=== PATIENT | female | born 1955 | race African-American/Black ===

== ENCOUNTER → 2017-03-05 | Outpatient (CLI) | payer OTHER ==
[2014-09-11 10:48] VITALS: BP 172/90
--- NOTE | 2017-03-05 11:33 | RAD ---
DATE: 03/05/2017 EXAM: DIGITAL SCREEN BILAT W/CAD HISTORY: Routine screening COMPARISON: 12/28/2014, 12/22/2014 This study was interpreted with the benefit of Computerized Aided Detection (CAD). FINDINGS: There are scattered fibroglandular densities in the breasts. No new or enlarging breast densities are seen. Benign type calcifications are present. No suspicious microcalcifications have developed. Benign-appearing lymph node type densities are noted in both axillary regions. IMPRESSION: There is no mammographic evidence of malignancy in either breast. BI-RADS CATEGORY: 2 BENIGN FINDING(S) RECOMMENDED FOLLOW-UP: 12M 12 MONTH FOLLOW-UP PQRS compliance statement: Patient information was entered into a reminder system with a target due date for the next mammogram. Mammography is a sensitive method for finding small breast cancers, but it does not detect them all and is not a substitute for careful clinical examination. A negative mammogram does not negate a clinically suspicious finding and should not result in delay in biopsying a clinically suspicious abnormality. "Our facility is accredited by the [employer] Mammography [employer]."
== END | disposition home or self-care (01) ==
LOC: MAMMO 10:14
PROVIDERS: ATTEND Family Medicine
DX: Z12.31 Encounter for screening mammogram for malignant neoplasm of breast (principal)
CPT/HCPCS: G0202; 77067

== ENCOUNTER → 2017-12-07 | Outpatient (CLI) | payer OTHER | END | disposition home or self-care (01) | LOC: US 14:37 | DX: N95.0 Postmenopausal bleeding (principal); R93.8 Abnormal findings on diagnostic imaging of other specified body structures | CPT/HCPCS: 76856 ==

== ENCOUNTER 2018-01-21 10:11 | Observation (INO) | payer OTHER ==
[~2018-01-21 10:11] MED LIST: LIDOCAINE 1% PF 2 ML VIAL. ID; LIDOCAINE 1%/EPI 1:100,000 20 ML VIAL.; METHYLENE BLUE 1% 10 ML VIAL.; MORPHINE SULFATE 2 MG/ML DISP.SYRIN. IV; ONDANSETRON PF 4 MG/2 ML VIAL. IV; PROCHLORPERAZINE 10 MG/2 ML VIAL. IV; SURGICEL HEMOSTAT 4X8 EACH.; ceFAZolin 2GM PREMIX 2 GM/50 ML BAG IV; fentaNYL PF VIAL 100 MCG/2 ML VIAL IV
[2018-01-21] MEDS: IV RINGERS,LACTATED 1000ML 1,000 ML IV ×4 (10:53→15:53)
[2018-01-21 10:59] LABS: ADD MAN DIFF? NO
[2018-01-21 11:03] LABS: BASO % 1 % (0-3); EOS % 0 % (0-3); HEMATOCRIT 46.3 % (36.0-47.0); HEMOGLOBIN 15.3 g/dL (12.0-15.5); LYMPH # 1.5 x10^3/uL (1.0-4.8); LYMPH % 32 % (24-48); MEAN CORPUSCULAR HEMOGLOBIN 30 pg (25-35); MEAN CORPUSCULAR HGB CONC 33 g/dL (31-37); MEAN CORPUSCULAR VOLUME 90 fL (79-100); MONO # 0.4 x10^3/uL (0.0-1.1); MONO % 8 % (0-9); NEUT # 2.7 x10^3uL (1.8-7.7); NEUT % 59 % (31-73); PLATELET COUNT 244 x10^3/uL (140-400); RED BLOOD COUNT 5.17 x10^6/uL (3.50-5.40); RED CELL DISTRIBUTION WIDTH 14.2 % (11.5-14.5); WHITE BLOOD COUNT 4.6 x10^3/uL (4.0-11.0)
[2018-01-21] MEDS ORDERED: MIDAZOLAM HCL/PF 2 MG/2 ML VIAL. ×2 (11:06)
[2018-01-21] MEDS ORDERED: GLYCOPYRROLATE 1 MG/5 ML VIAL. ×2 (11:06)
[2018-01-21] MEDS ORDERED: ROCURONIUM 50 MG/5 ML VIAL. ×2 (11:06)
[2018-01-21] MEDS ORDERED: NEOSTIGMINE 10 MG/10 ML VIAL. ×2 (11:06)
[2018-01-21] MEDS ORDERED: fentaNYL PF VIAL 100 MCG/2 ML VIAL ×6 (11:06→13:27)
[2018-01-21] MEDS ORDERED: DEXAMETHASONE SOD PHOS 20 MG/5 ML VIAL. ×2 (11:07)
[2018-01-21] MEDS ORDERED: PROPOFOL 20 ML IV ×2 (11:07)
[2018-01-21] MEDS ORDERED: ONDANSETRON PF 4 MG/2 ML VIAL. ×2 (11:08)
[2018-01-21] MEDS ORDERED: LIDOCAINE 2% PF Vial for OR 5 ML VIAL. ×2 (11:08)
[2018-01-21] MEDS ORDERED: PHENYLEPHRINE in 0.9% NACL PF 1 MG/10 ML SYRINGE. IV (12:47)
[2018-01-21] MEDS: BUPIVACAINE-EPI 0.25%-1:200000 50 ML VIAL. IJ ×2 (12:55)
[2018-01-21] MEDS ORDERED: ROCURONIUM 100 MG/10 ML VIAL. ×2 (13:15)
[2018-01-21] MEDS: ESTROGENS, CONJ VAGINAL CREAM 30GM TUBE. ×2 (14:17)
[2018-01-21] MEDS ORDERED: KETOROLAC 30 MG/ML INJ FOR OR. INJ ×2 (14:19)
[2018-01-21] MEDS ORDERED: ONDANSETRON PF 4 MG/2 ML VIAL. IV ×2 (14:45)
[2018-01-21] MEDS ORDERED: 0.9 % SODIUM CHLORIDE 10 ML DISP.SYRIN. IV ×2 (14:45)
[2018-01-21] MEDS ORDERED: diphenhydrAMINE 50 MG/ML VIAL IV ×2 (14:45)
[2018-01-21] MEDS ORDERED: SIMETHICONE 80 MG TAB.CHEW PO ×2 (14:45)
[2018-01-21] MEDS ORDERED: PROCHLORPERAZINE 10 MG/2 ML VIAL. IV ×2 (14:45)
[2018-01-21] MEDS ORDERED: DEXTROSE 50% 25 GM / 50ML DISP.SYRIN. IV ×2 (14:45)
[2018-01-21] MEDS ORDERED: KETOROLAC 30 MG/ML INJ. IV ×2 (14:45)
[2018-01-21] MEDS ORDERED: diphenhydrAMINE HCL 25 MG CAPSULE PO ×2 (14:45)
[2018-01-21] MEDS ORDERED: CALCIUM CARBONATE 500 MG TAB.CHEW PO ×2 (14:45)
[2018-01-21] MEDS: GABAPENTIN 300 MG CAPSULE. PO ×4 (15:00→22:01)
[2018-01-21] MEDS: fentaNYL PF VIAL 100 MCG/2 ML VIAL IV ×4 (15:15→15:33)
[2018-01-21] MEDS: ZOLPIDEM 5 MG TABLET. PO ×2 (22:01)
[2018-01-21] MEDS: oxyCODONE/APAP 5/325 1 TAB TABLET PO ×2 (22:04)
[2018-01-22 05:32] LABS: BASO % 0 % (0-3); EOS % 0 % (0-3); HEMATOCRIT 40.5 % (36.0-47.0); HEMOGLOBIN 13.2 g/dL (12.0-15.5); LYMPH # 0.8 x10^3/uL (1.0-4.8); LYMPH % 5 % (24-48); MEAN CORPUSCULAR HEMOGLOBIN 29 pg (25-35); MEAN CORPUSCULAR HGB CONC 33 g/dL (31-37); MEAN CORPUSCULAR VOLUME 90 fL (79-100); MONO # 0.4 x10^3/uL (0.0-1.1); MONO % 3 % (0-9); NEUT # 14.8 x10^3uL (1.8-7.7); NEUT % 92 % (31-73); PLATELET COUNT 238 x10^3/uL (140-400); RED BLOOD COUNT 4.49 x10^6/uL (3.50-5.40); RED CELL DISTRIBUTION WIDTH 13.8 % (11.5-14.5)
[2018-01-22 05:45] LABS: ADD MAN DIFF? YES
[2018-01-22 07:46] LABS: % BANDS 8 % (0-9); % LYMPHS 3 % (24-48); % MONOS 3 % (0-10); % SEGS 86 % (35-66)
[2018-01-22 07:51] LABS: PLT ESTIMATE ADEQUATE (ADEQUATE)
[2018-01-22] MEDS: GABAPENTIN 300 MG CAPSULE. PO ×2 (08:32)
[2018-01-22] MEDS: oxyCODONE/APAP 5/325 1 TAB TABLET PO ×2 (08:47)
== END 2018-01-22 10:18 | disposition home or self-care (01) ==
LOC: SURG 10:11 → 3 NORTH 15:40
DX: D25.9 Leiomyoma of uterus, unspecified (principal); N95.0 Postmenopausal bleeding; N84.0 Polyp of corpus uteri; N80.0 Endometriosis of uterus; N83.202 Unspecified ovarian cyst, left side; N83.201 Unspecified ovarian cyst, right side
CPT/HCPCS: 36415; 85007; 85025; 86850; 86900; 86901; 88307; A4215; G0378; G0379; J0690; J1100; J1885; J2250; J2370; J2405; J2704; J2710; J3010; J3490; J7030; J7120; Q9968

== ENCOUNTER → 2018-08-26 | Outpatient (CLI) | payer OTHER ==
[2018-01-22 06:25] VITALS: BP 116/74
[~2018-08-26] MED LIST changes: +DOCU-109 PO; +IBUP-1060 PO; -LIDOCAINE 1% PF 2 ML VIAL. ID; -LIDOCAINE 1%/EPI 1:100,000 20 ML VIAL.; -METHYLENE BLUE 1% 10 ML VIAL.; -MORPHINE SULFATE 2 MG/ML DISP.SYRIN. IV; -ONDANSETRON PF 4 MG/2 ML VIAL. IV; +OXYC-323 PO; -PROCHLORPERAZINE 10 MG/2 ML VIAL. IV; -SURGICEL HEMOSTAT 4X8 EACH.; -ceFAZolin 2GM PREMIX 2 GM/50 ML BAG IV; -fentaNYL PF VIAL 100 MCG/2 ML VIAL IV
--- NOTE | 2018-08-27 08:43 | RAD ---
DATE: 08/26/2018 EXAM: MAMMO RC SCREENING BILATERAL HISTORY: Screening evaluation. Benign right breast biopsy in 1971 is reported. COMPARISON: 12/28/2014 diagnostic mammographic exam, 03/05/2017 screening mammographic exam This study was interpreted with the benefit of Computerized Aided Detection (CAD ). Breast Density: SCATTERED The breast parenchyma shows scattered fibroglandular densities. Breast parenchyma level B. FINDINGS: Multiple very small masses are suggested but are similar for comparison with the previous exam. No dominant mass. No suspicious calcification clusters or distortion. IMPRESSION: BI-RADS CATEGORY: 2 BENIGN FINDING(S) RECOMMENDED FOLLOW-UP: PQRS compliance statement: Patient information was entered into a reminder system with a target due date in 1 year for the next mammogram. Mammography is a sensitive method for finding small breast cancers, but it does not detect them all and is not a substitute for careful clinical examination. A negative mammogram does not negate a clinically suspicious finding and should not result in delay in biopsying a clinically suspicious abnormality. "Our facility is accredited by the [employer] Mammography [employer]." ROHAND
== END | disposition home or self-care (01) ==
LOC: MAMMO 12:24
PROVIDERS: ATTEND Family Medicine
DX: Z12.31 Encounter for screening mammogram for malignant neoplasm of breast (principal)
CPT/HCPCS: 77063; 77067

== ENCOUNTER → 2019-09-01 | Outpatient (CLI) | payer OTHER ==
[2018-01-22 06:25] VITALS: BP 116/74
[~2019-09-01] MED LIST changes: -OXYC-323 PO; +OXYC1TAB15 PO
--- NOTE | 2019-09-02 08:30 | RAD ---
DATE: 09/01/2019 EXAM: MAMMO RC SCREENING BILATERAL HISTORY: Routine screening COMPARISON: 09/21/2008, 12/22/2014, 03/05/2017, and 08/26/2018 mammographic exams This study was interpreted with the benefit of Computerized Aided Detection (CAD). Breast Density: SCATTERED The breast parenchyma shows scattered fibroglandular densities. Breast parenchyma level B. FINDINGS: No masses or distortion in the interval. Multiple small masses are present and stable with benign features. No suspicious calcifications. IMPRESSION: Stable BI-RADS CATEGORY: 1 NEGATIVE RECOMMENDED FOLLOW-UP: 12M 12 MONTH FOLLOW-UP PQRS compliance statement: Patient information was entered into a reminder system with a target due date in one year for the next mammogram. Mammography is a sensitive method for finding small breast cancers, but it does not detect them all and is not a substitute for careful clinical examination. A negative mammogram does not negate a clinically suspicious finding and should not result in delay in biopsying a clinically suspicious abnormality. "Our facility is accredited by the [employer] Mammography [employer]."
== END | disposition home or self-care (01) ==
LOC: MAMMO 15:06
PROVIDERS: ATTEND Family Medicine
DX: Z12.31 Encounter for screening mammogram for malignant neoplasm of breast (principal); N64.89 Other specified disorders of breast
CPT/HCPCS: 77063; 77067

== ENCOUNTER → 2020-10-04 | Outpatient (CLI) | payer OTHER ==
[2018-01-22 06:25] VITALS: BP 116/74
--- NOTE | 2020-10-04 11:47 | RAD ---
EXAM: Bilateral digital screening mammogram with tomosynthesis. HISTORY: 65-year-old female presents for screening mammography. TECHNIQUE: Full-field digital craniocaudal and mediolateral oblique 2D and 3D tomosynthesis images of both breasts are obtained for evaluation. Computer aided detection was applied. COMPARISON: 09/01/2019 and 08/26/2018 BREAST PARENCHYMAL DENSITY: Level B - Scattered fibroglandular densities. FINDINGS: There is no new suspicious mass, microcalcification or region of architectural distortion. There are stable areas of nodularity and asymmetry within both breasts. IMPRESSION: BI-RADS Category 2: Benign finding(s). RECOMMENDATION: Annual mammography is recommended. If your mammogram demonstrates that you have dense breast tissue, which could hide abnormalities, and if you have other risk factors for breast cancer that have been identified, you might benefit from supplemental screening tests that may be suggested by your ordering physician. Dense breast tissue, in and of itself, is a relatively common condition. This information is not provided to cause undue concern, but rather to raise your awareness and to promote discussion with your physician regarding the presence of other risk factors, in addition to dense breast tissue. A report of your mammography results will be sent to you and your physician. You should contact your physician if you have any questions or concerns regarding this report. Mammography is a sensitive method for finding small breast cancers, but it does not detect them all and is not a substitute for careful clinical examination. A negative mammogram does not negate a clinically suspicious finding and should not result in delay in biopsying a clinically suspicious abnormality. PQRS compliance statement - Patient information was entered into a reminder system with a target due date for the next mammogram. "Our facility is accredited by the [employer] Mammography [employer]." Electronically signed by: Lori Stone MD (10/04/2020 11:44 AM) [id number]
== END ==
LOC: MAMMO 10:47
PROVIDERS: ATTEND Family Medicine
DX: Z12.31 Encounter for screening mammogram for malignant neoplasm of breast (principal); N64.89 Other specified disorders of breast
CPT/HCPCS: 77063; 77067

== ENCOUNTER → 2020-10-18 | Outpatient (CLI) | payer OTHER, MEDICARE ==
[2018-01-22 06:25] VITALS: BP 116/74
[2020-10-18 09:30] LABS: BASO % 1 % (0-3); EOS # 0.1 x10^3/uL (0.0-0.7); EOS % 1 % (0-3); HEMATOCRIT 43.3 % (36.0-47.0); HEMOGLOBIN 14.3 g/dL (12.0-15.5); LYMPH # 1.8 x10^3/uL (1.0-4.8); LYMPH % 36 % (24-48); MEAN CORPUSCULAR HEMOGLOBIN 29 pg (25-35); MEAN CORPUSCULAR HGB CONC 33 g/dL (31-37); MEAN CORPUSCULAR VOLUME 89 fL (79-100); MONO # 0.3 x10^3/uL (0.0-1.1); MONO % 7 % (0-9); NEUT # 2.8 x10^3/uL (1.8-7.7); NEUT % 55 % (31-73); PLATELET COUNT 243 x10^3/uL (140-400); RED BLOOD COUNT 4.84 x10^6/uL (3.50-5.40); RED CELL DISTRIBUTION WIDTH 13.8 % (11.5-14.5)
[2020-10-18 09:44] LABS: ALBUMIN 3.6 g/dL (3.4-5.0); ALBUMIN/GLOBULIN RATIO 0.8 (1.0-1.7); CALCIUM 9.4 mg/dL (8.5-10.1); CREATININE 0.9 mg/dL (0.6-1.0); GFR 75.6; POTASSIUM 3.9 mmol/L (3.5-5.1); TOTAL BILIRUBIN 0.5 mg/dL (0.2-1.0)
[2020-10-18 09:45] LABS: CHOLESTEROL/HDL RATIO 3.3
== END ==
LOC: LAB 08:39
DX: I10 Essential (primary) hypertension (principal)
CPT/HCPCS: 36415; 80053; 80061; 85025

== ENCOUNTER → 2020-11-06 | Outpatient (CLI) | payer OTHER, MEDICARE ==
[2018-01-22 06:25] VITALS: BP 116/74
[~2020-11-06] MED LIST changes: +AMLO-186 PO
== END ==
LOC: LAB 12:43
PROVIDERS: ATTEND Internal Medicine Gastroenterology
DX: Z01.812 Encounter for preprocedural laboratory examination (principal); Z20.828 Contact with and (suspected) exposure to other viral communicable diseases
CPT/HCPCS: U0003

== ENCOUNTER → 2020-11-09 | Day surgery (SDC) | payer OTHER, MEDICARE ==
[~2020-11-09] MED LIST changes: +IV RINGERS,LACTATED 1000ML 1,000 ML IV SCH; +LIDOCAINE 2% PF 5 ML VIAL. ONE; +PROPOFOL 10 MG/ML (20ML) VIAL. IV ONE
[2020-11-09 10:20] VITALS: BP 116/65
== END | disposition home or self-care (01) ==
LOC: ENDOS 08:02
PROVIDERS: ATTEND Internal Medicine Gastroenterology
DX: Z12.11 Encounter for screening for malignant neoplasm of colon (principal); K64.0 First degree hemorrhoids; K57.30 Diverticulosis of large intestine without perforation or abscess without bleeding; I10 Essential (primary) hypertension; Z79.899 Other long term (current) drug therapy; Z90.710 Acquired absence of both cervix and uterus; Z98.51 Tubal ligation status; Z98.890 Other specified postprocedural states; Z88.2 Allergy status to sulfonamides; Z88.8 Allergy status to other drugs, medicaments and biological substances
CPT/HCPCS: 45378; J2704; G0121